=== PATIENT | female | born 1980 | race Caucasian/White ===

== ENCOUNTER 2016-08-28 00:58 | Emergency (ER) | payer OTHER ==
[~2016-08-28] VITALS: Ht 175.3 cm; Wt 59.0 kg
--- NOTE | 2016-08-28 01:19 | ED PSYCHIATRIC COMPLAINT ---
History of Present Illness General Chief Complaint: ETOH/Drug Related Complaint Stated Complaint: BENZO DETOX, +SI ALOT ISSUES PER BF Source: patient, friend Exam Limitations: no limitations Vital Signs & Intake/Output Vital Signs & Intake/Output Vital Signs Date Time Temp Pulse Resp B/P B/P Pulse O2 O2 Flow FiO2 Mean Ox Delivery Rate 08/28 1103 97.8 77 18 109/60 96 06/07 0900 97.5 90 18 112/79 97 06/07 0843 97.5 90 18 112/79 06/07 0745 98.9 66 18 98/70 98 Room Air 06/07 0743 98.9 66 16 98/70 06/07 0634 97.2 67 20 109/53 99 Room Air 06/07 0518 98.0 68 18 105/54 06/07 0518 97.0 68 20 105/54 98 Room Air 06/07 0328 97.5 06/07 0323 95.4 65 18 104/70 97 Room Air 06/07 0318 97.5 65 18 104/70 06/07 0120 97 Room Air 06/07 0118 98.5 92 20 114/83 06/07 0118 98.5 92 20 114/83 97 Room Air Allergies Coded Allergies: shellfish derived (UNKNOWN 08/28/16) Uncoded Allergies: SEAFOOD (UNKNOWN 08/28/16) Reconcile Medications Clonazepam 1 MG TABLET 1 TAB PO TIDPRN ANXIETY (Reported) Zolpidem Tartrate 10 MG TABLET 1 TAB PO QPMP INSOMNIA (Reported) Triage Nurses Notes Reviewed? yes HPI: Patient brought in by her boyfriend. Patient is requesting detox. Patient has polysubstance abuse. Patient states that she drinks alcohol, uses cocaine and crack, uses heroin as well as benzodiazepines. Patient's last detox was back in February. Patient is having suicidal thoughts with original plan. Patient denies any homicidal ideations. Patient states her drug use is ruining her life. (MALIK VELAZQUEZ,ROSAURA Navarro) Past History Medical History Any Pertinent Medical History? see below for history Psychiatric: anxiety, depression Surgical History Surgical History: non-contributory Psychosocial History Tobacco Use: Current Daily Use Daily Tobacco Use Amount/Type: => 5 Cigarettes daily ETOH Use: heavy use Illicit Drug Use: cocaine, heroin, marijuana, benzodiazepines Family History Hx Contributory? No (ROSAURA GAN MD) Review of Systems Review of Systems Constitutional: Reports: no symptoms. EENTM: Reports: no symptoms. Respiratory: Reports: no symptoms. Cardiovascular: Reports: no symptoms. GI: Reports: no symptoms. Genitourinary: Reports: no symptoms. Musculoskeletal: Reports: no symptoms. Skin: Reports: no symptoms. Neurological/Psychological: Reports: see HPI, depressed. Hematologic/Endocrine: Reports: no symptoms. Immunologic/Allergic: Reports: no symptoms. All Other Systems: Reviewed and Negative (MALIK VELAZQUEZ,ROSAURA Navarro) Physical Exam Physical Exam General Appearance: well developed/nourished, alert, awake, anxious, mild distress Head: atraumatic Eyes: Bilateral: PERRL, EOMI. Ears, Nose, Throat: normal pharynx, normal ENT inspection, hearing grossly normal Neck: normal inspection, supple, full range of motion Respiratory: normal breath sounds, chest non-tender, no respiratory distress, lungs clear Cardiovascular: regular rate/rhythm, normal peripheral pulses Gastrointestinal: soft, non-tender Extremities: normal range of motion Neurological/Psychiatric: no motor/sensory deficits, awake, alert, calm, oriented x 3 Appearance/Memory/Insight: appropriate appearance, appropriate insight Behavoir/Eye Contact/Speech: cooperative, normal speech, good eye contact Thoughts/Hallucinations: normal thought pattern, no apparent hallucination Skin: intact, normal color, warm/dry SAD PERSONS Done? CRISIS CONSULT OBTAINED (MALIK VELAZQUEZ,ROSAURA Navarro) Progress Differential Diagnosis: drug intoxication, drug overdose, drug withdrawal, electrolyte abnormality Plan of Care: Orders Procedure Date/time Status Regular Diet 08/28 B Active Continuous Observation Monitor 08/28 1900 Active Continuous Observation Monitor 08/28 1500 Active Continuous Observation Monitor 08/28 1100 Active Continuous Observation Monitor 08/28 07 Active Add-on Test (ER Only) 08/28 0503 Active URINE DRUGS OF ABUSE 08/28 0432 Complete Continuous Observation Monitor 08/28 0118 Active ED CRISIS PSYCH CONSULT 08/28 0118 Active CIWA 08/28 011 Active URINALYSIS 08/28 112 Complete HUMAN BETA HCG SCREEN 08/28 112 Complete ETHANOL 08/28 112 Complete COMPREHENSIVE METABOLIC PANEL 08/28 112 Complete CBC WITHOUT DIFFERENTIAL 08/28 112 Complete Current Medications Sig/Mitch Start time Last Medication Dose Stop Time Status Admin Clonazepam 1 MG 4 TIMES/DAY 08/28 899 UNVr 08/28 (Klonopin 1MG Tab) 09/04 0859 0915 Laboratory Tests 08/28/16 0432: Urine Opiates Screen > 4000.00 H, Methadone Screen 44, Barbiturate Screen 66, Ur Phencyclidine Scrn < 6.00, Amphetamines Screen 144, U Benzodiazepines Scrn > 800.0 H, Urine Cocaine Screen > 1000.0 H, Urine Cannabis Screen 9.10, Urine Color YEL, Urine Clarity CLEAR, Urine pH 6.0, Ur Specific [place] 1.025, Urine Protein NEG, Urine Ketones NEG, Urine Nitrite NEG, Urine Bilirubin NEG, Urine Urobilinogen 0.2, Ur Leukocyte Esterase NEG, Ur Microscopic EXAM NOT REQUIRED, Urine Hemoglobin NEG, Urine Glucose NEG 08/28/16 0140: Anion Gap 17 H, Estimated GFR > 60, BUN/Creatinine Ratio 10.0, Glucose 122 H, Calcium 9.3, Total Bilirubin 0.4, AST 33, ALT 38, Alkaline Phosphatase 82, Total Protein 7.9, Albumin 4.7, Globulin 3.2, Albumin/Globulin Ratio 1.5, Total Beta HCG NEGATIVE, CBC w Diff NO MAN DIFF REQ, RBC 4.17 L, MCV 85.7, MCH 28.9, RDW 16.3 H, MPV 6.7 L, Gran % 58.1, Lymphocytes % 30.5, Monocytes % 9.4 H, Eosinophils % 1.3, Basophils % 0.7, Absolute Granulocytes 3.3, Absolute Lymphocytes 1.7, Absolute Monocytes 0.5, Absolute Eosinophils 0.1, Absolute Basophils 0, PUBS MCHC 33.7, Serum Alcohol 45.0 Hand-Off Endorsed To: TIFFANI TORRES MD Endorsed Time: 0700 Pending: consult (CRISIS) (MALIK VELAZQUEZ,ROSAURA Navarro) Comments: Cleared by psychiatry for discharge (TIFFANI TORRES MD) Departure Departure Condition: Stable Clinical Impression Primary Impression: Depression Qualifiers: Depression Type: unspecified Qualified Code: F32.9 - Major depressive disorder, single episode, unspecified Secondary Impressions: Benzodiazepine abuse, Cocaine abuse, Suicidal ideation Referrals: PATIENT HAS NO PRIMARY CARE DR (PCP/Family) (ROSAURA GAN MD) Departure Time of Disposition: 1140 Disposition: HOME OR SELF CARE Additional Instructions: Follow up with the recommendations of the neuropsychiatric aide. Departure Forms: DETOX FACILITIES LIST General Discharge Information (BRIAN VELAZQUEZ,TIFFANI)
[2016-08-28] MEDS ORDERED: CLONAZEPAM1 M2 PO (01:38)
[2016-08-28] MEDS ORDERED: ZOLPIDEM TARTRA10 M1 PO (01:38)
[2016-08-28 01:58] LABS: ABSOLUTE BASOPHIL COUNT 0 /CUMM (0.0-0.2); ABSOLUTE EOSINOPHIL COUNT 0.1 /CUMM (0.0-0.7); ABSOLUTE GRANULOCYTE CT 3.3 /CUMM (1.4-6.5); ABSOLUTE LYMPH COUNT 1.7 /CUMM (1.2-3.4); ABSOLUTE MONOCYTE COUNT 0.5 /CUMM (0.10-0.60); BASOPHIL % 0.7 % (0.0-2.0); EOSINOPHIL % 1.3 % (0-5); GRANULOCYTE % 58.1 % (42.2-75.2); HEMATOCRIT 35.7 % (37-47); MEAN CORPUSCULAR HGB 28.9 PG (27.0-31.0); MEAN CORPUSCULAR HGB CONC 33.7 G/DL (33.0-37.0); MEAN CORPUSCULAR VOLUME 85.7 FL (81.0-99.0); MEAN PLATELET VOLUME 6.7 FL (7.4-10.4); PLATELET COUNT 230 /CUMM (130-400); RBC DISTRIBUTION WIDTH 16.3 % (11.5-14.5); RED BLOOD CELL CT 4.17 /CUMM (4.20-5.40); WHITE BLOOD CELL COUNT 5.7 /CUMM (4.8-10.8)
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
[2016-08-28 11:03] VITALS: BP 109/60
== END 2016-08-28 12:36 ==
LOC: ERH 00:58
PROVIDERS: Emergency Medicine
DX: F32.9 Major depressive disorder, single episode, unspecified (principal); F13.10 Sedative, hypnotic or anxiolytic abuse, uncomplicated; F14.10 Cocaine abuse, uncomplicated; R45.851 Suicidal ideations
CPT/HCPCS: 80307; 81003; G0463; G0480